=== PATIENT | female | born 1975 | race Two or more races ===

== ENCOUNTER 2017-10-16 14:20 | Emergency (ER) | payer OTHER ==
[~2017-10-16] VITALS: Ht 154.9 cm; Wt 116.1 kg
[2017-10-16] MEDS ORDERED: BREO ELLIPTA I1 EACH (14:44)
[2017-10-16] MEDS ORDERED: VENTOLIN HFA18 GM (14:44)
[2017-10-16] MEDS ORDERED: SINGULAIR10 MG (14:44)
== END 2017-10-16 22:11 | disposition home or self-care (01) ==
LOC: ER 14:20
DX: K57.90 Diverticulosis of intestine, part unspecified, without perforation or abscess without bleeding (principal); R16.0 Hepatomegaly, not elsewhere classified; R10.31 Right lower quadrant pain

== ENCOUNTER 2019-06-03 14:11 | Emergency (ER) | payer OTHER ==
[~2019-06-03] VITALS: Ht 157.5 cm; Wt 119.3 kg
[~2019-06-03 14:11] MED LIST: BREO ELLIPTA I1 EACH; SINGULAIR10 MG; VENTOLIN HFA18 GM
[2019-06-03] MEDS ORDERED: SKELAXIN800 MG PO (20:37)
[2019-06-03] MEDS ORDERED: NAPROXEN500 MG PO (20:37)
== END 2019-06-03 21:03 | disposition home or self-care (01) ==
LOC: ER 14:11
DX: M79.18 Myalgia, other site (principal); I10 Essential (primary) hypertension

== ENCOUNTER 2019-09-17 09:42 | Emergency (ER) | payer OTHER ==
[~2019-09-17] VITALS: Ht 160 cm; Wt 113.9 kg
[~2019-09-17 09:42] MED LIST changes: +NAPROXEN500 MG PO; +SKELAXIN800 MG PO
[2019-09-17] MEDS ORDERED: NORFLEX100MG PO (11:04)
[2019-09-17] MEDS ORDERED: KETO10TA2 PO (11:04)
[2019-09-17] MEDS ORDERED: TAMS0.4C PO (12:55)
== END 2019-09-17 13:01 | disposition home or self-care (01) ==
LOC: ER 09:42
DX: R10.11 Right upper quadrant pain (principal); N20.1 Calculus of ureter